=== PATIENT | female | born 1985 | race Caucasian/White ===

== ENCOUNTER 2019-11-23 17:58 | Emergency (ER) | payer OTHER ==
--- OUTSIDE RECORDS SUMMARY | 2019-11-23 18:08 | XMS REPORT | Continuity of Care Document ---
:1985 External Reference #:[id number] Author Name Festus Beckman M.D. 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 Onset: 07/30/2011 Uterine scar from previous surgery in [place] MD Onset: 07/30/2011 , childbirth and the puerperium with problem Tobacco user Nishant Hayden M.D. Onset: 07/30/2011 Postoperative hematoma formation Festus Beckman M.D. Onset: 10/19/2019 Kidney stone Festus Beckman M.D. Onset: 10/19/2019 Sprain of ankle Marivel Bailon PA Onset: 03/17/2019 Constipation Claudy Tucker MD Onset: 01/01/2017 Hemorrhage of rectum and anus Claudy Tucker MD Onset: 01/01/2017 Social History Type Date Description Comments Sex Unknown Tobacco Use Start: Unknown currently smokes 1/2 FOR 8 YEARS Pack Daily ETOH Use Rarely consumes alcohol Recreational Drug Use Denies Drug Use Tobacco Use Start: Unknown Light tobacco smoker (10 or fewer cigarettes/day) Smoking Status Reviewed: 10/18/19 Light tobacco smoker (10 or fewer cigarettes/day) Enjoy Exercising Enjoys exercising Tattoo/Piercing Tattoo BACK, ARM, BOTH LEGS Tattoo/Piercing Pierced ears Tattoo/Piercing Pierced Tongue Smoke Alarms Yes MARQUES: 09/05/2011 Estimated Date of Based on 1st Delivery Ultrasound Allergies, Adverse Reactions, Alerts Description No Known Drug Allergies Medications Active Medications SIG Qnty Indications Ordering Date Provider Sulfamethoxazole/Trimeth 1 by mouth bid 6tabs N99.840 Festus Beckman, 07/2020 oprim DS M.D. 800-160mg Tablets QC Ferrous Sulfate take 1 tab po KarunaPetedalila, 03/19/2019 325(65Fe) qod M.D. mg Tablets Methylphenidate HCL ER 1 po daily Unknown 36mg Tablets ER 24HR Tylenol Extra Strength 1-2 tabs by Unknown 500mg mouth every 4 Tablets hours as needed Wellbutrin XL 1 by mouth every Unknown 300mg Tablets day ER 24HR Ibuprofen Brent Lovelace, 600mg Tablets MD Fluoxetine HCL Take One Capsule Unknown 20mg Capsules By Mouth Every Day History Medications Cephalexin 1 by mouth twice 14caps KarunaPetedalila, 07/26/2019 - 500mg a day M.D. 10/19/2019 Capsules Immunizations CPT Code Status Date Vaccine Lot # [id number] Given 05/30/2011 flu vaccination [id number] Vital Signs Date Vital Result Comment 10/19/2019 1:06pm BP Systolic 115 mmHg BP Diastolic 78 mmHg Body Temperature 98.4 F Heart Rate 100 /min Respiratory Rate 16 /min Height 57.5 inches 4'9.50" Weight 178.50 lb Pain Level 10 Stent discomfort BMI (Body Mass Index) 38.0 kg/m2 BSA (Body Surface Area) 1.72 m2 [place] body weight in kilograms 45 kg O2 % BldC Oximetry 96 % 07/23/2019 9:04am BP Systolic 113 mmHg BP Diastolic 57 mmHg Body Temperature 97.9 F Heart Rate 85 /min Respiratory Rate 17 /min Height 57.5 inches 4'9.50" Weight 184.00 lb Pain Level 0 BMI (Body Mass Index) 39.1 kg/m2 BSA (Body Surface Area) 1.75 m2 [place] body weight in kilograms 45 kg O2 % BldC Oximetry 98 % Results Test Acquired Date Facility Test Result H/L Range Note CBC 10/18/2019 [facility] White Blood Count 13.4 K/uL High 3.1-10.7 1 [address] [place] [address] [phone] Red Blood Count 3.59 M/uL Low 3.90-5.40 Hemoglobin 10.4 gm/dL Low 11.6-15.8 Hematocrit 32.7 % Low 36.0-46.1 Mean Cell Volume 91.1 fl Normal 80.9-99.0 Mean Corpuscular HGB 29.0 pg Normal 25.9-32.7 Mean Corpuscular HGB Conc 31.8 g/dL Normal 30.8-34.3 Platelet Count 383 K/uL High 155-360 Red Cell Distri Width SD 47.8 fl High 36-47 Red Cell Distri Width %CV 14.3 % Normal 11.7-14.4 Mean Platelet Volume 9.5 fl Normal 8.9-12.4 NRBC % 0.0 /100WBC < 10/ 100 WBC Urine Culture 07/23/2019 [facility] Urine Culture ESCHERICHIA COLI Abnormal [address] [place] [address] [phone] Quantity > 100,000 CFU/mL 3 Urine Culture URETHRAL ABDI Quantity 10,000 - 50,000 <SEE NOTE> 4 Escherichia Coli 07/23/2019 [facility] Nitrofurantoin 32 Susceptible [address] [place] [address] [phone] Trimethoprim/Sulfamethoxazole <=20 Susceptible Ampicillin <=2 Susceptible Cefazolin <=4 Susceptible Ampicillin/Sulbactam <=2 Susceptible Ciprofloxacin <=0.25 Susceptible Piperacillin/Tazobactam <=4 Susceptible Ceftazidime <=1 Susceptible Ceftriaxone <=1 Susceptible Cefepime <=1 Susceptible Levofloxacin <=0.12 Susceptible Imipenem <=0.25 Susceptible Gentamicin <=1 Susceptible Tobramycin <=1 Susceptible Urine Dipstick 07/23/2019 [facility] Ua Color yellow Yellow Ua Clarity clear Clear Ua Leuko neg Negative Ua Nitrite neg Negative Ua Urobilinogen 0.2 0.2 - 1.0 E.U./dL Ua Protein 15 High Negative Ua PH 6 Low 6.5-7.5 Ua Blood 200 High Negative Ua Specific [place] 1.025 1.010-1.030 Ua Ketones neg Negative Ua Bilirubin neg Negative Ua Glucose neg Negative 1 ACUTE PYELONEPHRITIS 2 ESCHERICHIA COLI 3 > 100,000 CFU/mL 4 10,000 - 50,000 CFU/mL Procedures Date Code Description Status 10/13/2019 94117 Cystourethroscopy W/ Lithotripsy Incl. Ins. Indwelling Completed Stent 09/22/2019 02594 Urography Retrograde W/Wo KUB Completed 09/22/2019 72012 Cystourethroscopy W/ Insert Indwelling Ureteral Stent Completed 01/23/2017 45068519 Colonoscopy Completed Medical Devices Description No Information Available Encounters Type Date Location Provider Dx Diagnosis Office Visit 10/19/2019 1:00p Urology Festus Beckman M.D. N20.0 Calculus of kidney N99.840 Postproc hematoma of a sys org fol a sys procedure Office Visit 07/23/2019 9:00a Urology Won Chavez, N39.0 Urinary tract PA infection, site not specified N32.81 Overactive bladder Z71.6 Tobacco abuse counseling Assessments Date Code Description Provider 10/19/2019 N20.0 Calculus of kidney Festus Beckman M.D. 10/19/2019 N99.840 Postprocedural hematoma of a genitourinary Festus Beckman M.D. system organ or structure following a genitourinary system procedure 10/13/2019 Z46.6 Encounter for fitting and adjustment of Festus Beckman M.D. urinary device 09/22/2019 N13.2 Hydronephrosis with renal and ureteral Festus Beckman M.D. calculous obstruction 09/22/2019 R10.9 Unspecified abdominal pain Carter Encarnacion MD 09/22/2019 R10.9 Unspecified abdominal pain Festus Beckman M.D. 09/22/2019 N13.2 Hydronephrosis with renal and ureteral Carter Encarnacion MD calculous obstruction 09/22/2019 D72.829 Elevated white blood cell count, Festus Beckman M.D. unspecified 09/22/2019 D72.829 Elevated white blood cell count, Carter Encarnacion MD unspecified 09/22/2019 R93.5 Abnormal findings on diagnostic imaging of Carter Encarnacion MD other abdominal regions, including retroperitoneum 07/23/2019 N39.0 Urinary tract infection, site not specified Won Chavez, PA 07/23/2019 N32.81 Overactive bladder Won Chavez PA 07/23/2019 Z71.6 Tobacco abuse counseling Won Chavez PA Plan of Treatment Future Appointment(s):11/02/2019 11:15 am - Festus Beckman M.D. at [id number]/2020 - Festus Beckman M.D.N20.0 Calculus of kidneyNew Labs:CBC W/Automated Diff, Ordered: 10/19/19New Xrays:Ultrasound, Renal & Bladder, Ordered: 10/19Comments:Patient status post management of a right ureteral stone and stent placement. The stent was placed today. Patient follow up with me in 3-4 weeks. Ultrasound to assess for hydronephrosis.N99.840 Postprocedural hematoma of a genitourinary system organ or structure following a genitourinary system procedureNew Medication:Sulfamethoxazole/Trimethoprim DS 800-160 mg - 1 by mouth bidComments:Patient developed a right renal hematoma after ureteroscopy. Her H&H in the hospital was monitored and was stable. We'll repeat her CBC today. She did have a white count on discharge she will finish antibiotics for a total of 1 week and I'll give her Bactrim. She will follow-up with me in 3 weeks with a renal ultrasound. Functional Status Description No Information Available Mental Status Description No Information Available Referrals Description No Information Available
[2019-11-23 18:16] VITALS: BP 116/73
--- NOTE | 2019-11-23 19:03 | UC ---
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 Pt states she needs a note to return to work. Right arm for the past 2 weeks. " Tmax was 99.4 w/o fever reducers. nothing higher -denies a real cough, states it's more of a throat clearing or a smoker's cough -no wheezing. no SOB, no pain with breathing -denies body aches, only rt elbow pain when she lifts things x 1 month. -has pain only the right side of her head -no rash. no fatigue. no confusion or delerium -no known covid contact. no travel to highly infected area. -[facility] that was flu +. -thinks she has a head cold. - History of Current Complaint Chief Complaint: UCGeneralIllness Stated Complaint: SINUS/HEAD COLD Time Seen by Provider: 11/23/19 18:46 Hx Last Menstrual Period: 11/06/19 Pain Intensity: 5 - Allergies/Home Medications Allergies/Adverse Reactions: Allergies Allergy/AdvReac Type Severity Reaction Status Date / Time No Known Allergies Allergy Verified 11/23/19 18:17 Home Medications: Home Medications Ferrous Sulfate 325 mg PO DAILY 11/23/19 [History Confirmed 11/23/19] Fluoxetine HCl [Prozac] 20 mg PO DAILY 11/23/19 [History Confirmed 11/23/19] Methylphenidate HCl [Concerta] 36 mg PO DAILY 11/23/19 [History Confirmed ] buPROPion SR TAB* [Wellbutrin SR TAB*] 300 mg PO DAILY 11/23/19 [History Confirmed 11/23/19] PMH/Surg Hx/FS Hx/Imm Hx Previously Healthy: Yes Psychological History: Other - ADD - Surgical History Surgical History: Yes Surgery Procedure, Year, and Place: kidney stones removed-10/13/19 - Family History Known Family History: Positive: Hypertension - Social History Alcohol Use: Rare Substance Use Type: None Substance Use Comment - Amount & Last Used: Pt frequently leaves unit to smoke Smoking Status (MU): Heavy Every Day Tobacco Smoker Type: Cigarettes Have You Smoked in the Last Year: Yes Household Exposure Type: Cigarettes - Immunization History Most Recent Influenza Vaccination: unsure Most Recent Tetanus Shot: 04/12/15 Most Recent Pneumonia Vaccination: unsure Review of Systems All Other Systems Reviewed And Are Negative: Yes Constitutional: Positive: Negative. Negative: Fever, Chills, Fatigue Skin: Positive: Negative. Negative: Rash Eyes: Positive: Negative ENT: Positive: Negative, Nasal Discharge. Negative: Sore Throat, Ear Ache Respiratory: Negative: Shortness Of Breath, Cough - "throat clearing" Cardiovascular: Positive: Negative. Negative: Palpitations, Chest Pain Gastrointestinal: Positive: Negative. Negative: Abdominal Pain, Vomiting, Diarrhea, Nausea Genitourinary: Positive: Negative Motor: Positive: Negative - elbow pain, Other Neurovascular: Positive: Negative Musculoskeletal: Positive: Negative. Negative: Myalgia Neurological/Mental Status: Positive: Negative Psychological: Positive: Negative Is Patient Immunocompromised?: No Physical Exam Triage Information Reviewed: Yes Appearance: Well-Appearing, No Pain Distress, Well-Nourished - no cough at all during the entire time I am in exam room. breathing is non-labored Vital Signs: Initial Vital Signs Temp 98.8 F 11/23/19 18:07 Pulse 78 11/23/19 18:07 Resp 14 11/23/19 18:07 BP 116/73 11/23/19 18:07 Pulse Ox 100 11/23/19 18:07 Vital Signs Reviewed: Yes Eye Exam: Normal Eyes: Positive: Conjunctiva Clear ENT Exam: Normal ENT: Positive: Pharynx normal, TMs normal, Uvula midline. Negative: Nasal congestion, Nasal drainage, TM bulging, TM dull, TM red, Tonsillar swelling, Tonsillar exudate, Sinus tenderness Neck exam: Normal Neck: Positive: Supple, Nontender, No Lymphadenopathy Respiratory Exam: Normal Respiratory: Positive: Chest non-tender, Lungs clear, Normal breath sounds, No respiratory distress, No accessory muscle use. Negative: Crackles, Rhonchi, Stridor, Wheezing Cardiovascular Exam: Normal Cardiovascular: Positive: RRR Abdominal Exam: Normal Abdomen Description: Positive: Nontender, Soft Musculoskeletal Exam: Normal Neurological Exam: Normal Psychological Exam: Normal Skin Exam: Normal Skin: Negative: Rashes Respiratory Course/Dx - Course Course Of Treatment: No covid exposure. no temp (max was 99.4 w/o medication), cough is only a "throat clearing", no myalgias or fatigue. no concerning travel or contact -does not meet criteria for testing -rapid flu negative - Differential Dx/Diagnosis Differential Diagnosis/HQI/PQRI: Bronchitis, Influenza, Laryngitis Provider Diagnosis: Upper respiratory infection Discharge ED - Sign-Out/Discharge Documenting (check all that apply): Patient Departure All imaging exams completed and their final reports reviewed: No Studies - Discharge Plan Condition: Stable Disposition: HOME Patient Education Materials: Upper Respiratory Infection (ED) Forms: *Work Release Referrals: Gregorio Escobedo PA [Primary Care Provider] - Additional Instructions: Make sure to increase fluids and rest. Please call your PCP immediately if you develop shortness of breath, difficulty breathing and fever > 100.4. Call your PCP for further follow up guidance in 2-3 days. - Billing Disposition and Condition Condition: STABLE Disposition: Home
[2019-11-23 19:28] LABS: Influenza A Molecular Negative (Negative); Influenza B Molecular Negative (Negative)
== END 2019-11-23 19:47 | disposition home or self-care (01) ==
LOC: UCCORT 17:58
DX: J06.9 Acute upper respiratory infection, unspecified (principal); F98.8 Other specified behavioral and emotional disorders with onset usually occurring in childhood and adolescence; F17.210 Nicotine dependence, cigarettes, uncomplicated
CPT/HCPCS: 99211; G0463